=== PATIENT | female | born 1975 | race Caucasian/White ===

== ENCOUNTER → 2017-05-24 | Outpatient (CLI) | payer BC ==
[2017-05-25 14:09] LABS: Rheumatoid Factor, Serum Negative (Negative)
[2017-05-26 11:58] LABS: Antinuclear Antibody Screen Negative (Negative)
== END | disposition home or self-care (01) ==
LOC: LAB 14:36
PROVIDERS: Hospitalist
DX: M79.643 Pain in unspecified hand (principal)
CPT/HCPCS: 85651; 86038; 86430